=== PATIENT | female | born 2000 | race Two or more races ===

== ENCOUNTER 2021-05-24 19:58 | Emergency (ER) | payer OTHER ==
[~2021-05-24] VITALS: Ht 154.9 cm; Wt 81.6 kg
[2021-05-25 00:22] VITALS: BP 121/78
== END 2021-05-25 00:09 | disposition home or self-care (01) ==
LOC: ER 20:00
DX: A60.00 Herpesviral infection of urogenital system, unspecified (principal); E66.9 Obesity, unspecified; Z68.35 Body mass index [BMI] 35.0-35.9, adult